=== PATIENT | female | born 1965 | race Caucasian/White ===

== ENCOUNTER 2022-10-06 10:28 | Day surgery (SDC) | payer OTHER ==
[2022-10-02 15:30] VITALS: BMI 27.0
[~2022-10-06 10:28] MED LIST: LACTATED RINGERS 1,000 ML IV SCH
[2022-10-06 11:15] VITALS: TEMP 98.4
[2022-10-06] MEDS ORDERED: PROPOFOL 10 MG/ML 20 ML VIAL IV ONE (11:47)
[2022-10-06] MEDS ORDERED: LIDOCAINE 2% INJ 20 MG/ML (2 ML VIAL) ONE (11:47)
--- NOTE | 2022-10-06 11:52 | P.GSHP ---
History of Present Illness H&P Date: 10/06/22 Chief Complaint: Hematemesis, screening 57-year-old female here today for colonoscopy. Patient's last colonoscopy 10 years ago or so. He is due for colonoscopy. No bowel complaints. Last night she did have an episode of vomiting where she noticed blood during her bowel p rep. Patient is on daily baby aspirin for history of previous CVA. No family history of colon cancer. 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 History of Any Multi-Drug Resistant Organisms: None Reported Past Surgical History: Section, Hysterectomy, Tubal Ligation Past Anesthesia/Blood Transfusion Reactions: No Reported Reaction Additional Past Anesthesia/Blood Transfusion Reaction / Comment(s): no hx blood transfusion Smoking Status: Former smoker - Past Family History Mother Family Medical History: No Reported History Medications and Allergies Home Medications Medication Instructions Recorded Confirmed Type Aspirin [[place]] 81 mg PO DAILY 10/02/22 10/06/22 History Allergies Allergy/AdvReac Type Severity Reaction Status Date / Time No Known Allergies Allergy Verified 10/06/22 11:00 Surgical - Exam Vital Signs Temp Pulse Resp BP Pulse Ox 98.4 F 87 16 133/70 98 10/06/22 11:14 10/06/22 11:14 10/06/22 11:14 10/06/22 11:14 10/06/22 11:14 Physical exam: General: Well-developed, well-nourished HEENT: Normocephalic, sclerae nonicteric Abdomen: Nontender, nondistended Extremities: No edema Neuro: Alert and oriented Assessment and Plan (1) Colon cancer screening Narrative/Plan: Will proceed with upper and lower endoscopy Current Visit: Yes Status: Acute Code(s): Z12.11 - ENCOUNTER FOR SCREENING FOR MALIGNANT NEOPLASM OF COLON SNOMED Code(s): 215732177
[2022-10-06 12:13] VITALS: PULSE 78
--- NOTE | 2022-10-06 12:16 | P.PCN ---
Date of Procedure: 10/06/22 Procedure(s) Performed: PREOPERATIVE DIAGNOSIS: hematemesis, screening POSTOPERATIVE DIAGNOSIS: antral gastritis, distal esoophagitis, normal colon PROCEDURE: 1. EGD with biopsy 2. Colonoscopy ANESTHESIA: MAC SURGEON: Salty Harrison M.D. SPECIMENS: antrum ENDOSCOPIC PROCEDURE: The patient was on the endoscopy table in the left decubitus position. The Olympus gastroscope was inserted into the oropharynx and passed under direct visualization to the region of the third portion of the duodenum. From that point the scope was slowly withdrawn inspecting all surfaces carefully. There were no neoplastic inflammatory or polypoid lesions throughout the duodenum. The pylorus was widely patent. The stomach was carefully inspected. There was mild antral gastritis with superficial erosions. A biopsy of the antrum took place to rule out H. pylori. Retroflexion revealed a normal hiatus. The esophagus was then carefully examined. There was mild distal esophagitis with a small tear from recent vomitiing. The remainder of the esophagus appeared normal.were The patient was kept on the endoscopy table in the left decubitus position. The Olympus colonoscope was inserted into the anus and passed under direct visualization to the base of the cecum. The appendiceal orifice was visualized. From that point the scope was slowly withdrawn inspecting all surfaces carefully. There were no neoplastic inflammatory or polypoid lesions throughout the cecum, ascending, transverse, descending, sigmoid and rectum. There was no visible diverticulosis noted. Digital rectal examination was normal. The patient was taken to the recovery room in stable condition per anesthesia guidelines. RECOMMENDATIONS: begin antacid tx. await bx results.
[2022-10-06 12:39] VITALS: BP 132/88; RESP 18
== END 2022-10-06 12:51 | disposition home or self-care (01) ==
LOC: ORWHC2ENDO 10:28
PROVIDERS: ATTEND Surgery
DX: Z12.11 Encounter for screening for malignant neoplasm of colon (principal); K29.50 Unspecified chronic gastritis without bleeding; K20.90 Esophagitis, unspecified without bleeding; D68.59 Other primary thrombophilia; Z98.891 History of uterine scar from previous surgery; Z90.710 Acquired absence of both cervix and uterus; Z98.51 Tubal ligation status; Z87.891 Personal history of nicotine dependence; Z79.82 Long term (current) use of aspirin
CPT/HCPCS: 45378; 43239; J2704; J2001; 88305